=== PATIENT | female | born 1955 | race Caucasian/White ===

== ENCOUNTER 2023-04-28 05:10 | Emergency (ER) | payer OTHER, MEDICAID ==
[~2023-04-28] VITALS: Ht 152.4 cm; Wt 78.9 kg
[2023-04-28 05:10] VITALS: BP_SYST 138; BP_SYST 144; BP_DIAS 90; PULSE 78; RESP 17; TEMP 97.7; O2SAT 98
[2023-04-28] MEDS ORDERED: KETOROLAC 30 MG/ML VIAL IM ONE (05:45)
[2023-04-28] MEDS ORDERED: NAPR-54 PO (07:22)
[2023-04-28] MEDS ORDERED: ACET-5629 PO (07:22)
[2023-04-28] MEDS ORDERED: HYDROcodone/APAP 5/325 MG 1 TAB TAB PO ONE (07:25)
[2023-04-28 08:30] VITALS: BP 138/84; PULSE 76; RESP 17; TEMP 97.7; O2SAT 98
== END 2023-04-28 08:30 | disposition home or self-care (01) ==
LOC: MED 05:10
DX: S82.092A Other fracture of left patella, initial encounter for closed fracture (principal); W18.30XA Fall on same level, unspecified, initial encounter; Y93.89 Activity, other specified; Y92.89 Other specified places as the place of occurrence of the external cause; Y99.8 Other external cause status
CPT/HCPCS: 29505; 73562; 96372; 99283; J1885; Q0092